=== PATIENT | male | born 1940 | race Caucasian/White ===

== ENCOUNTER 2019-08-12 11:59 | Inpatient (IN) | payer MEDICARE, OTHER ==
[~2019-08-12] VITALS: Ht 175 cm; Wt 109.9 kg
[2019-08-12] VITALS (8 sets, daily range): BP systolic 83–157; BP diastolic 69–118
[2019-08-12 12:16] LABS: HEMATOCRIT 48 % (40-54); HEMOGLOBIN 15.7 G/DL (13.3-17.7); MEAN CORPUSCULAR HEMOGLOBIN 32 PG (25-34); MEAN CORPUSCULAR HGB CONC 33 G/DL (32-36); MEAN CORPUSCULAR VOLUME 97 FL (80-99); WHITE BLOOD COUNT 11.2 10^3/uL (4.3-11.0)
[2019-08-12 12:17] LABS: BASOPHILS % (AUTO) 0 % (0-10); EOSINOPHILS # (AUTO) 0.3 10^3/uL (0.0-0.3); EOSINOPHILS % (AUTO) 3 % (0-10); LYMPHOCYTES # (AUTO) 2.8 X 10^3 (1.0-4.0); LYMPHOCYTES % (AUTO) 25 % (12-44); MEAN PLATELET VOLUME 9.4 FL (7.4-10.4); MONOCYTES # (AUTO) 0.5 X 10^3 (0.0-1.0); MONOCYTES % (AUTO) 5 % (0-12); NEUTROPHILS # (AUTO) 7.5 X 10^3 (1.8-7.8); NEUTROPHILS % (AUTO) 67 % (42-75); PLATELET COUNT 179 10^3/uL (130-400)
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
--- NOTE | 2019-08-12 12:51 | NUR ---
O2 sats 88% on room air. Patient placed on 2 liters nasal cannula with sats rising to 92%.
[2019-08-12 12:52] LABS: CHLORIDE 97 MMOL/L (98-107); SODIUM 135 MMOL/L (135-145)
[2019-08-12 12:53] LABS: ALANINE AMINOTRANSFERASE 25 U/L (0-55); ALBUMIN 3.9 GM/DL (3.2-4.5); ALKALINE PHOSPHATASE 67 U/L (40-136); BILIRUBIN,TOTAL 2.5 MG/DL (0.1-1.0); BUN/CREATININE RATIO 12; CALCIUM 9.1 MG/DL (8.5-10.1); CARBON DIOXIDE 22 MMOL/L (21-32); CREATININE SERUM 1.13 MG/DL (0.60-1.30); GFR ESTIMATED > 60; GLUCOSE 161 MG/DL (70-105); TOTAL PROTEIN 7.9 GM/DL (6.4-8.2)
[2019-08-12 13:03] LABS: CLARITY,URINE CLEAR; COLOR,URINE AMBER; GLUCOSE, URINE (UA) NEGATIVE (NEGATIVE); KETONES,URINE NEGATIVE (NEGATIVE); NITRITE,URINE NEGATIVE (NEGATIVE); PROTEIN,URINE NEGATIVE (NEGATIVE)
[2019-08-12 13:04] LABS: BACTERIA,URINE NEGATIVE /HPF; BILIRUBIN,URINE 1+ (NEGATIVE); LEUKOCYTE ESTERASE ,URINE NEGATIVE (NEGATIVE); SQUAMOUS EPITHELIAL CELL,UR 0-2 /HPF
[2019-08-12] MEDS ORDERED: IOHEXOL 350 MG/ML 150 ML (OMNIPAQUE 350) VIAL IV ONE (13:15)
[2019-08-12] MEDS ORDERED: HOLD METFORMIN - RECEIVED CONTRAST 20 ML VIAL IV SCH (13:15)
[2019-08-12] MEDS ORDERED: CATHETER FLUSH 10 ML SYR IV PRN (13:15)
[2019-08-12] MEDS ORDERED: NS 100 ML (IVPB) BAG IV ONE (13:15)
[2019-08-12] MEDS ORDERED: ENOXAPARIN 100 MG/1 ML (LOVENOX) SYR SC ONE (13:45)
--- NOTE | 2019-08-12 13:46 | Diagnostic Imaging Report ---
CHEST 1 VIEW AP/PA ONLY Indication: Dyspnea. Comparison: CTA chest performed concurrently. Findings: No focal airspace disease in the visualized lungs. Please note that the posterior lower lobes are poorly evaluated by portable radiography. No pleural effusion or pneumothorax. Normal cardiomediastinal silhouette. Impression: 1. No acute cardiopulmonary process by portable radiography. Please see CTA chest report for details of the bilateral pulmonary emboli. Dictated by: Dictated on workstation # [id number]
--- NOTE | 2019-08-12 13:50 | Diagnostic Imaging Report ---
PROCEDURE: CT angiography of the chest with contrast. TECHNIQUE: Multiple contiguous axial images were obtained through the chest after uneventful bolus administration of intravenous contrast. 3D reconstructed CTA MIP acquisitions were also performed. Auto Exposure Controls were utilized during the CT exam to meet ALARA standards for radiation dose reduction. INDICATION: Left leg pain and possible pulmonary embolism. Evaluation of pulmonary arterial system does show moderate clot burden within bilateral main pulmonary arteries. There is thrombus extending into lobar and segmental branches and there are bilateral upper lobes and bilateral lower lobes. No saddle embolus is identified. Thoracic aorta is normal caliber. There is no dissection. No pericardial or pleural fluid is seen. Parenchymal evaluation does show some minimal infiltrate or atelectasis in the posterior left lower lobe. Right lung is clear. No masses are identified. Upper abdomen does show hepatic steatosis. IMPRESSION: Extensive bilateral pulmonary emboli, as described. There is also mild infiltrate or atelectasis in the left lower lobe. Results were called to Dr. Moore of the emergency Department prior to this dictation. Dictated by: Dictated on workstation # [id number]
--- NOTE | 2019-08-12 13:51 | Diagnostic Imaging Report ---
PROCEDURE: US left lower extremity venous. TECHNIQUE: Multiple real-time grayscale images were obtained over the left lower extremity in various projections. Additional duplex Doppler and color Doppler images were also obtained. INDICATION: Left leg swelling. FINDINGS: Extensive left lower extremity DVT is seen. There is occlusive thrombus involving the left common femoral, superficial femoral and popliteal veins. Thrombus is seen within the posterior tibial vein. Peroneal veins are patent. No fluid collections are seen. IMPRESSION: Extensive left lower extremity DVT. Dictated by: Dictated on workstation # [id number]
[2019-08-12] MEDS ORDERED: HEParin DRIP 25000 UNIT/500ML 500 ML IV ONE (13:55)
[2019-08-12] MEDS ORDERED: HEParin 1000 UNIT/ML (10ML VIAL) FOR BOLUS IV ONE (14:00)
[2019-08-12 14:27] LABS: INR 1.1 (0.8-1.4); PROTHROMBIN TIME PATIENT 14.8 SEC (12.2-14.7)
[2019-08-12] MEDS ORDERED: HEParin 1000 UNIT/ML BOLUS (FULL THERAPY) IV PRN (17:15)
--- NOTE | 2019-08-12 18:51 | NUR ---
know dvt so scd's not placed due to contraindications
[2019-08-12] MEDS ORDERED: HEParin 1000 UNIT/ML (10ML VIAL) FOR BOLUS IV SCH (20:30)
--- NOTE | 2019-08-12 20:43 | History & Physical-Hospitalist ---
History of Present Illness HPI/Chief Complaint CC: Bilateral PE with DVT recurrent type HPI: This is a 79[address]WM patient of Dr Velázquez who later told the nurse he was matt nelson presented to the [facility] ICU after presenting to the [facility] ER with dyspnea and was found to have bilateral PE with left LE DVT. He was sent to [facility] last 09/13/18 for similar episode and was placed on Xarelto and he weaned off of it the past 3 months after w/u in [facility] revealed no cancer as source of the clots. He is currently on Heparin drip and Dr Parekh has been consulted and his O2 sat is 97% on room air. Source: patient Exam Limitations: no limitations Date Seen 08/12/19 Time Seen by a Provider: 16:30 Attending Physician Marcelle Sandhu Charles J MD Referring Physician Date of Admission Aug 12, 2019 at 14:18 Home Medications & Allergies Home Medications Reviewed patient Home Medication Reconciliation performed by pharmacy medication reconciliations rv service technician and/or nursing. Patients Allergies have been reviewed. Allergies Allergies Coded Allergies No Known Drug Allergies ([id number]/23/19) Past Lqhyomk-Agthrj-Zihxhz Hx Past Med/Social Hx: Reviewed Nursing Past Med/Soc Hx, Reviewed and Corrections made Patient Social History Marrital Status: single Employed/Student: retired Alcohol Use: Occasionally Uses Recreational Drug Use: No Smoking Status: Never a Smoker 2nd Hand Smoke Exposure: No Recent Foreign Travel: No Contact w/other who traveled: No Recent Hopitalizations: No Recent Infectious Disease Expo: No Seasonal Allergies Seasonal Allergies: No Past Medical History Surgeries: Appendectomy Respiratory: Pulmonary Embolism Cardiac: Deep Vein Thrombosis Review of Systems Constitutional: see HPI, weakness Respiratory: dyspnea on exertion Musculoskeletal: joint swelling Physical Exam Physical Exam Vital Signs Vital Signs - First Documented 08/12/19 08/12/19 12:05 16:45 Temp 36.2 Pulse 107 Resp 22 B/P (MAP) 139/63 (88) Pulse Ox 96 O2 Delivery Room Air O2 Flow Rate 3.00 Capillary Refill : Less Than 3 Seconds Height, Weight, BMI Height: '" Weight: lbs. oz. kg; 35.26 BMI Method: General Appearance: No Apparent Distress, Chronically ill Respiratory: Lungs Clear Cardiovascular: Regular Rate, Rhythm Extremity: Pedal Edema Neurologic/Psychiatric: Alert, Oriented x3, No Motor/Sensory Deficits, Normal Mood/Affect Results Results/Procedures Labs Laboratory Tests 08/12/19 12:10 Patient resulted labs reviewed. Assessment/Plan Admission Diagnosis Assessment: Bilateral PE recurrent type with DVT Plan: Heparin drip Dr Parekh consultation Admission Status: Inpatient Order (span 2 midnights) Reason for Inpatient Admission: Recurrent PE Diagnosis/Problems Diagnosis/Problems (1) Left leg DVT Status: Acute (2) Bilateral pulmonary embolism Status: Acute Clinical Quality Measures DVT/VTE Risk/Contraindication: Risk Factor Score Per Nursin RFS Level Per Nursing on Admit: 3=High MARCELLE SANDHU DO Aug 12, 2019 20:43
[2019-08-12] MEDS: HEParin DRIP 25000 UNIT/500ML (FULL THERAPY) IV SCH (21:07)
--- NOTE | 2019-08-12 21:17 | Consultation-Cardiology ---
HPI-Cardiology Cardiology Consultation Date of Consultation 08/12/19 Date of Admission Time Seen by Provider: 21:15 Indication: Pulmonary embolism HPI 79 years old gentleman with history of DVT PE in August 2018, had extensive workup, last treated with Xarelto, seen and had workup in [facility], was weaned off the Xarelto after no source of hypercoagulable state w as noted, he was doing well until recently started to have increased swelling in his left leg, went to the emergency room and noted to have DVT and PE. Denied any shortness of breath, no chest pain, no palpitation, he is maintained on heparin drip. Doesn't take any other medication Home Medications & Allergies Allergies: Coded Allergies: No Known Drug Allergies (Unverified , 08/12/19) Home Medication List Reviewed: Yes OHS-Zebkau-Muimcu Hx Patient Social History Marital Status: single Employed/Student: retired Alcohol Use: Occasionally Uses Recreational Drug Use: No Smoking Status: Never a Smoker 2nd Hand Smoke Exposure: No Recent Foreign Travel: No Recent Infectious Disease Expo: No Recent Hopitalizations: No Past Medical History DVT and PE Family Medical History Family Medical Hx Noncontributory Review of Systems-General Review of Systems Constitutional: see HPI, weakness EENTM: no symptoms reported Respiratory: see HPI; No cough; dyspnea on exertion; No hemoptysis, No orthopnea, No phlegm, No short of breath, No stridor, No wheezing, No other Cardiovascular: see HPI; No chest pain, No edema, No Hx of Intervention, No palpitations, No syncope, No vascular heart diseas, No other Gastrointestinal: no symptoms reported, see HPI Genitourinary: no symptoms reported Musculoskeletal: see HPI, joint pain, joint swelling Skin: see HPI, other (swelling on the left leg and pain) Psychiatric/Neurological: No Symptoms Reported, See HPI All Other Systems Reviewed Negative Unless Noted: Yes Reviewed Test Results Reviewed Test Results Lab Laboratory Tests Test 08/12/19 12:10 08/12/19 12:35 08/12/19 19:05 Range/Units White Blood Count 11.2 H 4.3-11.0 10^3/uL Red Blood Count 4.97 4.35-5.85 10^6/uL Hemoglobin 15.7 13.3-17.7 G/DL Hematocrit 48 40-54 % Mean Corpuscular Volume 97 80-99 FL Mean Corpuscular Hemoglobin 32 25-34 PG Mean Corpuscular Hemoglobin Concent 33 32-36 G/DL Red Cell Distribution Width 13.0 10.0-14.5 % Platelet Count 179 130-400 10^3/uL Mean Platelet Volume 9.4 7.4-10.4 FL Neutrophils (%) (Auto) 67 42-75 % Lymphocytes (%) (Auto) 25 12-44 % Monocytes (%) (Auto) 5 0-12 % Eosinophils (%) (Auto) 3 0-10 % Basophils (%) (Auto) 0 0-10 % Neutrophils # (Auto) 7.5 1.8-7.8 X 10^3 Lymphocytes # (Auto) 2.8 1.0-4.0 X 10^3 Monocytes # (Auto) 0.5 0.0-1.0 X 10^3 Eosinophils # (Auto) 0.3 0.0-0.3 10^3/uL Basophils # (Auto) 0.0 0.0-0.1 10^3/uL Prothrombin Time 14.8 H 12.2-14.7 SEC INR Comment 1.1 0.8-1.4 Activated Partial Thromboplast Time 27 59 H 24-35 SEC Sodium Level 135 135-145 MMOL/L Potassium Level 4.0 3.6-5.0 MMOL/L Chloride Level 97 L 98-107 MMOL/L Carbon Dioxide Level 22 21-32 MMOL/L Anion Gap 16 H 5-14 MMOL/L Blood Urea Nitrogen 14 7-18 MG/DL Creatinine 1.13 0.60-1.30 MG/DL Estimat Glomerular Filtration Rate > 60 BUN/Creatinine Ratio 12 Glucose Level 161 H 70-105 MG/DL Calcium Level 9.1 8.5-10.1 MG/DL Corrected Calcium 9.2 8.5-10.1 MG/DL Total Bilirubin 2.5 H 0.1-1.0 MG/DL Aspartate Amino Transf (AST/SGOT) 24 5-34 U/L Alanine Aminotransferase (ALT/SGPT) 25 0-55 U/L Alkaline Phosphatase 67 40-136 U/L Troponin I < 0.30 <0.30 NG/ML Pro-B-Type Natriuretic Peptide 602.5 H <75.0 PG/ML Total Protein 7.9 6.4-8.2 GM/DL Albumin 3.9 3.2-4.5 GM/DL Urine Color CARMELINA H Urine Clarity CLEAR Urine pH 6. 5-9 Urine Specific [place] 1.020 1.016-1.022 Urine Protein NEGATIVE NEGATIVE Urine Glucose (UA) NEGATIVE NEGATIVE Urine Ketones NEGATIVE NEGATIVE Urine Nitrite NEGATIVE NEGATIVE Urine Bilirubin 1+ H NEGATIVE Urine Urobilinogen >=8.0 NORMAL MG/DL Urine Leukocyte Esterase NEGATIVE NEGATIVE Urine RBC (Auto) 1+ H NEGATIVE Urine RBC 2-5 H /HPF Urine WBC NONE /HPF Urine Squamous Epithelial Cells 0-2 /HPF Urine Crystals NONE /LPF Urine Bacteria NEGATIVE /HPF Urine Casts NONE /LPF Urine Mucus SMALL H /LPF Urine Culture Indicated NO Physical Exam Physical Exam Vital Signs Vital Signs - First Documented 08/12/19 08/12/19 12:05 16:45 Temp 36.2 Pulse 107 Resp 22 B/P (MAP) 139/63 (88) Pulse Ox 96 O2 Delivery Room Air O2 Flow Rate 3.00 Capillary Refill : Less Than 3 Seconds Height, Weight, BMI Height: '" Weight: lbs. oz. kg; 35.26 BMI Method: General Appearance: No Apparent Distress, Chronically ill Eyes: Bilateral Eye Normal Inspection, Bilateral Eye PERRL, Bilateral Eye EOMI HEENT: PERRL/EOMI, Pharynx Normal Neck: Full Range of Motion, Normal Inspection, Non Tender, Supple Respiratory: Lungs Clear Cardiovascular: Regular Rate, Rhythm, No Gallop, No JVD, No Murmur, Normal Peripheral Pulses Gastrointestinal: Normal Bowel Sounds, No Pulsatile Mass, Non Tender, Soft Back: Normal Inspection, No CVA Tenderness, No Vertebral Tenderness Extremity: Pedal Edema Neurologic/Psychiatric: Alert, Oriented x3, No Motor/Sensory Deficits, Normal Mood/Affect Skin: Normal Color, Warm/Dry Lymphatic: No Adenopathy A/P-Cardiology Admission Diagnosis DVT PE Leg pain Assessment/Plan DVT/PE, multiple pulmonary embolism, second episode, unprovoked, had similar episode in August 2018. Was on Xarelto until about 3 months ago, restart Xarelto at 50 mg twice a day Swelling and pain in the left leg secondary to ovarian embolism No chest pain was reported Morbid obesity Clinical Quality Measures DVT/VTE Risk/Contraindication: Risk Factor Score Per Nursin RFS Level Per Nursing on Admit: 3=High MEGAN GARRETT MD Aug 12, 2019 9:17 pm
[2019-08-13] VITALS (12 sets, daily range): BP systolic 110–130; BP diastolic 65–92
[2019-08-13 03:56] LABS: BASOPHILS % (AUTO) 0 % (0-10); EOSINOPHILS # (AUTO) 0.5 10^3/uL (0.0-0.3); EOSINOPHILS % (AUTO) 5 % (0-10); HEMATOCRIT 44 % (40-54); HEMOGLOBIN 14.4 G/DL (13.3-17.7); LYMPHOCYTES % (AUTO) 21 % (12-44); MEAN CORPUSCULAR HEMOGLOBIN 31 PG (25-34); MEAN CORPUSCULAR HGB CONC 33 G/DL (32-36); MEAN CORPUSCULAR VOLUME 95 FL (80-99); MEAN PLATELET VOLUME 10.4 FL (7.4-10.4); MONOCYTES # (AUTO) 1.2 X 10^3 (0.0-1.0); MONOCYTES % (AUTO) 13 % (0-12); NEUTROPHILS # (AUTO) 5.8 X 10^3 (1.8-7.8); NEUTROPHILS % (AUTO) 61 % (42-75); PLATELET COUNT 180 10^3/uL (130-400); RED CELL DISTRIBUTION WIDTH 13.5 % (10.0-14.5); WHITE BLOOD COUNT 9.5 10^3/uL (4.3-11.0)
[2019-08-13 04:22] LABS: BUN/CREATININE RATIO 11; CARBON DIOXIDE 21 MMOL/L (21-32); CHLORIDE 103 MMOL/L (98-107); GFR ESTIMATED > 60; GLUCOSE 128 MG/DL (70-105); PHOSPHORUS 3.7 MG/DL (2.3-4.7); SODIUM 137 MMOL/L (135-145)
[2019-08-13] MEDS ORDERED: KCL 20 MEQ TAB (K-DUR) PO SCH (06:00)
[2019-08-13] MEDS ORDERED: MAGNESIUM 1 GM/100 ML IVPB 100 ML IV SCH (06:00)
[2019-08-13] MEDS ORDERED: POTASSIUM CL 10MEQ/50ML IVPB 50 ML IV SCH (06:00)
--- NOTE | 2019-08-13 06:19 | Diagnostic Imaging Report ---
INDICATION: Shortness of breath. Portable chest 5:04 AM FINDINGS: Heart size and pulmonary vascularity are normal. Lungs are clear. There are no effusions or pneumothoraces. IMPRESSION: Negative chest. Dictated by: Dictated on workstation # [id number]
[2019-08-13] MEDS: HEParin DRIP 25000 UNIT/500ML (FULL THERAPY) IV SCH (07:45)
--- NOTE | 2019-08-13 07:59 | Cardiology Progress Note ---
Subjective Date Seen by Provider: Aug 13, 2019 Time Seen by Provider: 07:58 Subjective/Events-last exam Patient is laying down in bed, still having some pain in his left leg, some cough Review of Systems General: No Chills, No Night Sweats, No Fatigue, No Malaise, No Appetite, No Other HEENT: No Head Aches, No Visual Changes, No Eye Pain, No Ear Pain, No Dysphasia, No Sinus Congestion, No Post Nasal Drip, No Sore Throat, No Other Pulmonary: Dyspnea, Cough; No Pleuritic Chest Pain, No Other Cardiovascular: No: Chest Pain, Palpitations, Orthopnea, Paroxysmal Noc. Dyspnea, Edema, Lt Headedness, Other Objective-Cardiology Exam Last Set of Vital Signs Vital Signs 08/13/19 08/13/19 06:00 07:00 Pulse 89 Resp 10 B/P (MAP) 130/79 (96) Pulse Ox 94 O2 Delivery Nasal Cannula O2 Flow Rate 3.00 Capillary Refill : Less Than 3 Seconds I&O Intake and Output 08/13/19 00:00 Intake Total 270 ml Output Total 525 ml Balance -255 ml Intake Oral 250 ml IV Total 20 ml Output Urine Total 525 ml Daily Weight Change No General: Alert, Oriented X3, Cooperative HEENT: Atraumatic, PERRLA Neck: Supple, No JVD, No Thyromegaly Lungs: Clear to Auscultation, Normal Air Movement Heart: Regular Rate, Normal S1, Normal S2, No Murmurs Abdomen: Normal Bowel Sounds, Soft, No Tenderness, No Hepatosplenomegaly, No Masses Extremities: No Clubbing, No Cyanosis, No Edema, Normal Pulses, No Tenderness/Swelling Skin: No Rashes, No Breakdown, No Significant Lesion Neuro: Normal Gait, Normal Speech, Strength at 5/5 X4 Ext, Normal Tone, Sensation Intact Psych/Mental Status: Mental Status NL, Mood NL Results Lab Laboratory Tests 08/12/19 12:10 08/13/19 03:00 A/P-Cardiology Admission Diagnosis DVT PE Leg pain Assessment/Plan DVT/PE, multiple pulmonary embolism, second episode, unprovoked, had similar episode in August 2018, start back on Xarelto 15 mg twice daily for 21 days then 20 mg daily Swelling and pain in the left leg secondary to DVT, continue on Xarelto No chest pain was reported Morbid obesity Okay for discharge and follow-up as an outpatient Clinical Quality Measures DVT/VTE Risk/Contraindication: Risk Factor Score Per Nursin RFS Level Per Nursing on Admit: 3=High MEGAN GARRETT MD Aug 13, 2019 07:59
[2019-08-13] MEDS ORDERED: RIVAROXABAN 15 MG TABLET (XARELTO) PO SCH ×2 (08:30→19:00)
[2019-08-13] MEDS ORDERED: RIVA15TA2 PO (09:34)
[2019-08-13] MEDS ORDERED: RIVA20TA2 PO (09:34)
--- NOTE | 2019-08-13 11:14 | Discharge Summary ---
[facility] 08/13/19 1114: Diagnosis/Chief Complaint Date of Admission Aug 12, 2019 at 14:18 Date of Discharge Discharge Date: Aug 13, 2019 Admission Diagnosis Assessment: Bilateral PE recurrent type with DVT Plan: Heparin drip Dr Parekh consultation Primary Care Miguel Angel Velázquez MD Discharge Diagnosis (1) Left leg DVT Status: Acute (2) Bilateral pulmonary embolism Status: Acute Discharge Summary Discharge Physical Exam Allergies: Coded Allergies: No Known Drug Allergies (Unverified , 08/12/19) Vitals & I&Os Vital Signs Date Time Temp Pulse Resp B/P (MAP) Pulse Ox O2 Delivery O2 Flow Rate FiO2 08/13/19 10:38 Room Air 08/13/19 10:06 1.00 08/13/19 09:00 89 125/83 (97) 94 08/13/19 08:00 20 08/13/19 04:00 36.8 General Appearance: No Apparent Distress, WD/WN HEENT: PERRL/EOMI, Pharynx Normal Respiratory: Chest Non Tender, Lungs Clear, Normal Breath Sounds, No Accessory Muscle Use, No Respiratory Distress Cardiovascular: Regular Rate, Rhythm, No Edema, No Gallop, No Murmur, Normal Peripheral Pulses Extremity: Normal Range of Motion, Non Tender, No Calf Tenderness, Pedal Edema Skin: Normal Color, Warm/Dry Neurologic/Psychiatric: Alert, Oriented x3, No Motor/Sensory Deficits, Normal Mood/Affect Hospital Course CC: Bilateral PE, LLE DVT Pt came into the [place] ER after having ankle swelling, thigh pain, and redness in his calf with associated SOB mainly with exertion. He was evaluated with Chest CTA and Extremity Venous Doppler and found to have multiple large bilateral PE and multiple DVT in his left leg. He was transferred to the [facility] ICU for treatment of the DVT and PE. He was started on Heparin prior to transfer and continued on it along with IV fluids overnight. In the morning he was transitioned to oral Rivaroxaban in preparation for discharge. He does not complain of shortness of breath or the leg pains anymore. Labs (last 24 hrs) Laboratory Tests 08/12/19 12:10: White Blood Count 11.2H, Red Blood Count 4.97, Hemoglobin 15.7, Hematocrit 48, Mean Corpuscular Volume 97, Mean Corpuscular Hemoglobin 32, Mean Corpuscular Hemoglobin Concent 33, Red Cell Distribution Width 13.0, Platelet Count 179, Mean Platelet Volume 9.4, Neutrophils (%) (Auto) 67, Lymphocytes (%) (Auto) 25, Monocytes (%) (Auto) 5, Eosinophils (%) (Auto) 3, Basophils (%) (Auto) 0, Neutrophils # (Auto) 7.5, Lymphocytes # (Auto) 2.8, Monocytes # (Auto) 0.5, Eosinophils # (Auto) 0.3, Basophils # (Auto) 0.0, Prothrombin Time 14.8H, INR Comment 1.1, Activated Partial Thromboplast Time 27, Sodium Level 135, Potassium Level 4.0, Chloride Level 97L, Carbon Dioxide Level 22, Anion Gap 16H, Blood Urea Nitrogen 14, Creatinine 1.13, Estimat Glomerular Filtration Rate > 60, BUN/Creatinine Ratio 12, Glucose Level 161H, Calcium Level 9.1, Corrected Calcium 9.2, Total Bilirubin 2.5H, Aspartate Amino Transf (AST/SGOT) 24, Alanine Aminotransferase (ALT/SGPT) 25, Alkaline Phosphatase 67, Troponin I < 0.30, Pro-B-Type Natriuretic Peptide 602.5H, Total Protein 7.9, Albumin 3.9 08/12/19 12:35: Urine Color AMBERH, Urine Clarity CLEAR, Urine pH 6., Urine Specific [place] 1.020, Urine Protein NEGATIVE, Urine Glucose (UA) NEGATIVE, Urine Ketones NEGATIVE, Urine Nitrite NEGATIVE, Urine Bilirubin 1+H, Urine Urobilinogen >=8.0, Urine Leukocyte Esterase NEGATIVE, Urine RBC (Auto) 1+H, Urine RBC 2-5H, Urine WBC NONE, Urine Squamous Epithelial Cells 0-2, Urine Crystals NONE, Urine Bacteria NEGATIVE, Urine Casts NONE, Urine Mucus SMALLH, Urine Culture Indicated NO 08/12/19 19:05: Activated Partial Thromboplast Time 59H 08/13/19 00:55: Activated Partial Thromboplast Time 198*H 08/13/19 03:00: White Blood Count 9.5, Red Blood Count 4.61, Hemoglobin 14.4, Hematocrit 44, Mean Corpuscular Volume 95, Mean Corpuscular Hemoglobin 31, Mean Corpuscular Hemoglobin Concent 33, Red Cell Distribution Width 13.5, Platelet Count 180, Mean Platelet Volume 10.4, Neutrophils (%) (Auto) 61, Lymphocytes (%) (Auto) 21, Monocytes (%) (Auto) 13H, Eosinophils (%) (Auto) 5, Basophils (%) (Auto) 0, Neutrophils # (Auto) 5.8, Lymphocytes # (Auto) 2.0, Monocytes # (Auto) 1.2H, Eosinophils # (Auto) 0.5H, Basophils # (Auto) 0.0, Sodium Level 137, Potassium Level 4.0, Chloride Level 103, Carbon Dioxide Level 21, Anion Gap 13, Blood Urea Nitrogen 11, Creatinine 1.00, Estimat Glomerular Filtration Rate > 60, BUN/Creatinine Ratio 11, Glucose Level 128H, Calcium Level 9.0, Phosphorus Level 3.7, Magnesium Level 2.0 08/13/19 09:33: Activated Partial Thromboplast Time 37H Patient resulted labs reviewed. Pending Labs Laboratory Tests 08/13/19 09:33: Activated Partial Thromboplast Time 37 Discharge Home Medications: Active Scripts Active Xarelto Tablet (Rivaroxaban) 20 Mg Tablet 20 Mg PO DAILY@1700 Xarelto Tablet (Rivaroxaban) 15 Mg Tablet 15 Mg PO BID@0700,1900 Instructions to patient/family Please see electronic discharge instructions given to patient. Clinical Quality Measures DVT/VTE Risk/Contraindication: Risk Factor Score Per Nursin RFS Level Per Nursing on Admit: 3=High MARCELLE SANDHU DO 08/13/192112: Diagnosis/Chief Complaint Discharge Diagnosis (1) Bilateral pulmonary embolism Status: Acute (2) Left leg DVT Status: Acute Discharge Summary Discharge Physical Exam Allergies: Coded Allergies: No Known Drug Allergies (Unverified , 08/12/19) General Appearance: No Apparent Distress, WD/WN Respiratory: Normal Breath Sounds Cardiovascular: Regular Rate, Rhythm Neurologic/Psychiatric: Alert, Oriented x3, No Motor/Sensory Deficits, Normal Mood/Affect Hospital Course Was the Problem List Reviewed?: Yes Hospital course: Pt had an uneventful hospital course, he was admitted for B/L pulmonary emboli and DVT due to noncompliance with Xarelto, so he was placed on a Xarelto 15 mg BID in addition to conversion of 20 mg daily after three weeks o f that regimen and will be discharged with close follow-up with Dr. Velázquez in [place]. He did not require oxygen supplementation. Discussion & Recommendations Discharge Planning: <30 minutes discharge planning Supervisory-Addendum Brief Verification & Attestation Participated in pt care: history, MDM, physical Personally performed: exam, history, MDM, supervision of care Care discussed with: Medical Student Procedures: n/a Results interpretation: Verified all documentation Verification and Attestation of Medical Student E/M Service A medical student performed and documented this service in my presence. I reviewed and verified all information documented by the medical student and made modifications to such information, when appropriate. I personally performed the physical exam and medical decision making. Marcelle Sandhu, Aug 13, 2019,21:13 [facility] Aug 13, 2019 11:14 MARCELLE SANDHU DO Aug 13, 2019 21:13
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
[2019-09-03] MEDS ORDERED: RIVAROXABAN 20 MG TABLET (XARELTO) PO SCH (17:00)
== END 2019-08-13 14:00 | disposition home or self-care (01) | DRG 176 ==
LOC: ER FS 12:01 → ICU 14:18 → OBSVTOIN 14:18
PROVIDERS: ADMIT Internal Medicine; ATTEND Internal Medicine
DX: I26.99 Other pulmonary embolism without acute cor pulmonale (principal); I82.412 Acute embolism and thrombosis of left femoral vein; I82.432 Acute embolism and thrombosis of left popliteal vein; I82.442 Acute embolism and thrombosis of left tibial vein; E66.01 Morbid (severe) obesity due to excess calories; Z91.19 Patient's noncompliance with other medical treatment and regimen; Z59.0 Homelessness; Z68.35 Body mass index [BMI] 35.0-35.9, adult; Z86.711 Personal history of pulmonary embolism; Z86.718 Personal history of other venous thrombosis and embolism
CPT/HCPCS: 36415; 71045; 71275; 80048; 80053; 81000; 83735; 83880; 84100; 84484; 85025; 85610; 85730; 87081; 93005; 93306; 96365

== ENCOUNTER 2020-08-30 19:09 | Emergency (ER) | payer MEDICARE ==
[~2020-08-30] VITALS: Ht 175.3 cm; Wt 104.3 kg
[~2020-08-30 19:09] MED LIST: RIVA15TA2 PO; RIVA20TA2 PO
--- NOTE | 2020-08-30 19:41 | ED General ---
General Chief Complaint: General Problems/Pain Stated Complaint: LEG PAIN;SHOULDER PAIN Source of Information: Patient Exam Limitations: No Limitations History of Present Illness Date Seen by Provider: Aug 30, 2020 Time Seen by Provider: 19:37 Initial Comments For about 2 months patient has had some vague nonspecific symptoms including rhinorrhea, sore throat, malaise, fevers. He was tested for Covid and it was negative. He followed up and today was sent to the emergency room in [facility] due to low back and pelvic pain for about a month as well as bilateral leg pain and right shoulder pain. A CT scan was done showing multiple lytic lesions in the lumbar spine and pelvis with a differential include multiple myeloma or metastatic disease. He was then referred to the emergency room here but the reasons why are not exactly clear Timing/Duration: 1-2 Days Severity: Moderate Associated Systoms: Weakness Allergies and Home Medications Allergies Coded Allergies: No Known Drug Allergies (Unverified , 08/12/19) Home Medications Docusate Sodium 100 Mg Capsule, 100 MG PO DAILY Prescribed by: MARLENI BAKER on 08/30/202039 Hydrocodone/Acetaminophen 1 Each Tablet, 1 EACH PO Q4H PRN for PAIN-MODERATE (5- 7) Prescribed by: MARLENI BAKER on 08/30/202039 Rivaroxaban 15 Mg Tablet, 15 MG PO BID@0700,1900 Prescribed by: CLEMENTE SANDHU on 08/13/19933 Rivaroxaban 20 Mg Tablet, 20 MG PO DAILY@1700 Prescribed by: CLEMENTE SANDHU on 08/13/19933 Patient Home Medication List Home Medication List Reviewed: Yes Review of Systems Review of Systems Constitutional: see HPI; No chills, No fever; malaise, weakness EENTM: see HPI Respiratory: no symptoms reported; No cough, No short of breath Cardiovascular: no symptoms reported; No chest pain Musculoskeletal: see HPI, back pain Skin: no symptoms reported Psychiatric/Neurological: No Symptoms Reported Hematologic/Lymphatic: No Symptoms Reported Past Muyukvc-Adaytn-Iyudfy Hx Patient Social History 2nd Hand Smoke Exposure: No Recent Foreign Travel: No Contact w/Someone Who Travel: No Recent Hopitalizations: No Immunizations Up To Date Date of Influenza Vaccine: Jul 21, 2019 Seasonal Allergies Seasonal Allergies: No Past Medical History Surgeries: Yes (dental cyst removed) Appendectomy Respiratory: Yes Pulmonary Embolism Cardiac: No Deep Vein Thrombosis Neurological: No Genitourinary: No Gastrointestinal: No Musculoskeletal: No Endocrine: No HEENT: No Cancer: No Psychosocial: No Integumentary: No Physical Exam Vital Signs Vital Signs - First Documented 08/30/20 19:25 Temp 36.9 Pulse 99 Resp 18 B/P (MAP) 110/89 (96) Pulse Ox 97 O2 Delivery Room Air Capillary Refill : Height, Weight, BMI Height: '" Weight: lbs. oz. kg; 35.26 BMI Method: General Appearance: No Apparent Distress, WD/WN, Obese, Other (alert and oriented. ) Eyes: Bilateral Eye Normal Inspection, Bilateral Eye PERRL, Bilateral Eye EOMI HEENT: PERRL/EOMI, TMs Normal Neck: Full Range of Motion, Normal Inspection Respiratory: Normal Breath Sounds, No Accessory Muscle Use, No Respiratory Distress Cardiovascular: Regular Rate, Rhythm, Normal Peripheral Pulses Gastrointestinal: Normal Bowel Sounds, Non Tender, Soft; No Tenderness Extremity: Normal Capillary Refill, Normal Inspection Neurologic/Psychiatric: Alert, Oriented x3 Skin: Normal Color, Warm/Dry Progress/Results/Core Measures Suspected Sepsis SIRS Temperature: Pulse: Respiratory Rate: Laboratory Tests 08/30/20 19:53: White Blood Count 11.3H Blood Pressure / Mean: Laboratory Tests 08/30/20 19:53: Creatinine 0.83, Platelet Count 244, Total Bilirubin 1.4H Results/Orders Lab Results Laboratory Tests Test 08/30/20 19:53 08/30/20 20:45 Range/Units White Blood Count 11.3 H 4.3-11.0 10^3/uL Red Blood Count 5.30 4.30-5.52 10^6/uL Hemoglobin 16.2 13.3-17.7 g/dL Hematocrit 50 40-54 % Mean Corpuscular Volume 95 80-99 fL Mean Corpuscular Hemoglobin 31 25-34 pg Mean Corpuscular Hemoglobin Concent 32 32-36 g/dL Red Cell Distribution Width 12.6 10.0-14.5 % Platelet Count 244 130-400 10^3/uL Mean Platelet Volume 9.8 9.0-12.2 fL Immature Granulocyte % (Auto) 0 % Neutrophils (%) (Auto) 74 42-75 % Lymphocytes (%) (Auto) 17 12-44 % Monocytes (%) (Auto) 9 0-12 % Eosinophils (%) (Auto) 0 0-10 % Basophils (%) (Auto) 0 0-10 % Neutrophils # (Auto) 8.3 H 1.8-7.8 10^3/uL Lymphocytes # (Auto) 1.9 1.0-4.0 10^3/uL Monocytes # (Auto) 1.0 0.0-1.0 10^3/uL Eosinophils # (Auto) 0.1 0.0-0.3 10^3/uL Basophils # (Auto) 0.0 0.0-0.1 10^3/uL Immature Granulocyte # (Auto) 0.0 0.0-0.1 10^3/uL Sodium Level 134 L 135-145 MMOL/L Potassium Level 4.5 3.6-5.0 MMOL/L Chloride Level 98 98-107 MMOL/L Carbon Dioxide Level 22 21-32 MMOL/L Anion Gap 14 5-14 MMOL/L Blood Urea Nitrogen 17 7-18 MG/DL Creatinine 0.83 0.60-1.30 MG/DL Estimat Glomerular Filtration Rate > 60 BUN/Creatinine Ratio 20 Glucose Level 117 H 70-105 MG/DL Calcium Level 9.9 8.5-10.1 MG/DL Corrected Calcium 10.0 8.5-10.1 MG/DL Total Bilirubin 1.4 H 0.1-1.0 MG/DL Aspartate Amino Transf (AST/SGOT) 37 H 5-34 U/L Alanine Aminotransferase (ALT/SGPT) 40 0-55 U/L Alkaline Phosphatase 119 40-136 U/L Total Protein 7.8 6.4-8.2 GM/DL Albumin 3.9 3.2-4.5 GM/DL My Orders Orders - MARLENI BAKER ARTIFICIAL INSEMINATION TECHNICIAN Cbc With Automated Diff (08/30/20 19:36) Comprehensive Metabolic Panel (08/30/20 19:36) Ua Culture If Indicated (08/30/20 19:36) Hydrocodone/Apap 5/325 Tablet (Lortab 5 (08/30/20 19:45) Chest Pa/Lat (2 View) (08/30/20 19:46) Ct Chest/Abdomen W (08/30/20 20:30) Iohexol Injection (Omnipaque 350 Mg/Ml 1 (08/30/20 20:45) Received Contrast (Hold Metformin- Contr (08/30/20 20:45) Ns (Ivpb) (Sodium Chloride 0.9% Ivpb Bag (08/30/20 20:45) Medications Given in ED Current Medications Medications Dose Ordered Sig/Luli Route Start Time Stop Time Status Last Admin Dose Admin Acetaminophen/ Hydrocodone Bitart 1 tab ONCE ONCE PO 08/30/20 19:45 08/30/20 19:46 DC 08/30/20 19:48 1 TAB Iohexol 100 ml ONCE ONCE IV 08/30/20 20:45 08/30/20 20:46 DC 08/30/20 20:57 100 ML Sodium Chloride 100 ml ONCE ONCE IV 08/30/20 20:45 08/30/20 20:46 DC 08/30/20 20:57 80 ML Vital Signs/I&O 08/30/20 19:25 Temp 36.9 Pulse 99 Resp 18 B/P (MAP) 110/89 (96) Pulse Ox 97 O2 Delivery Room Air Capillary Refill : Diagnostic Imaging Diagonstic Imaging: CT Comments NAME: DOMINIC LINCOLN MED REC#: [id number] PT STATUS: REG ER : 1940 PHYSICIAN: MARLENI BAKER APRN ADMIT DATE: 08/30/20/ER Draft Date of Exam:08/30/20 CHEST PA/LAT (2 VIEW) INDICATION: Right scapular pain EXAMINATION: PA and lateral views of the chest. FINDINGS: The heart size and vascularity are normal. Lungs are clear. There is no effusion. There is no acute bony abnormality. IMPRESSION: 1. No acute abnormality is seen. 2. There is no change from 08/13/2019. Dictated on workstation # [id number] Dict: 08/30/202012 Trans: 08/30/20 2017 [facility] [id number] Interpreted by: KIRILL ROCHA MD Electronically signed by: NAME: DOMINIC LINCOLN MED REC#: [id number] PT STATUS: REG ER : 1940 PHYSICIAN: MARLENI BAKER APRN ADMIT DATE: 08/30/20/ER Draft Date of Exam:08/30/20 CT CHEST/ABDOMEN W PROCEDURE: CT chest and abdomen with contrast. TECHNIQUE: Multiple contiguous axial images were obtained through the chest and abdomen after the administration of intravenous contrast. Auto Exposure Controls were utilized during the CT exam to meet ALARA standards for radiation dose reduction. INDICATION:Abnormal lytic lesion seen in the lumbar spine. Right scapular pain. CT CHEST: The lungs are clear. There is no effusion or pneumothorax. There is no mediastinal, hilar or axillary lymphadenopathy. There is a 1 cm lytic lesion in the T7 vertebral body. There is an 8 mm lytic lesion in the T9 vertebral body. There is a 12 mm lytic lesion in the T12 vertebral body. CT ABDOMEN AND PELVIS: There is an 18 mm vague low density lesion in the posterior segment of the right lobe of the liver. The remainder of the liver is normal. The gallbladder and bile ducts are normal. The spleen, pancreas and right adrenal gland are normal. There is nodularity of the left adrenal gland with a lesion measuring 2 cm. The kidneys are normal. There is a hiatal hernia. No acute bowel abnormality is evident. There is no adenopathy. There is no ascites. There is a 16 mm lytic lesion in the posterior L5 vertebral body with another similar-sized lesion at L3. 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 CT of the abdomen and pelvis shows a possible lesion in the liver which may be secondary to metastatic disease. There is a left adrenal gland lesion which may be secondary to metastatic disease. 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 Dictated on workstation # [id number] Dict: 08/30/202113 Trans: 08/30/202124 [facility] [phone] Interpreted by: KIRILL ROCHA MD Electronically signed by: Departure Communication (Admissions) 2035-I spoke with Dr. Osborne from oncology. Recommends getting a CT scan of the chest abdomen pelvis to rule out primary that could have metastasized. If there is no evidence of a primary lesion then he would recommend a peripheral smear, serum protein electrophoresis, quantitative immuneglobulins, beta-2 microglobulin's and he will see in the clinic. 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 Will defer obtaining MM labs until evaluated by oncology. Impression Primary Impression: lytic bony lesions Disposition: HOME, SELF-CARE Condition: Stable Departure-Patient Inst. Decision time for Depature: 20:38 Referrals: JEF GREY CHARLES J MD (PCP) Primary Care Physician Patient Instructions: NO INSTRUCTIONS GIVEN Add. Discharge Instructions: Call Dr. Villa office tomorrow to make an appointment to be seen as soon as they can see you. Tell them I spoke with him tonight. Pain medication as dire cted. Be aware this can be constipating so you should also take a stool softener as directed. Return to ER for any worsening symptoms, intolerable pain or other concerns. All discharge instructions reviewed with patient and/or family. Voiced understanding. Scripts Docusate Sodium (Colace) 100 Mg Capsule 100 MG PO DAILY, #14 CAP Prov: MARLENI BAKER APRN 08/30/20 Hydrocodone/Acetaminophen (Hydrocodone-Acetamin 5-325 mg) 1 Each Tablet 1 EACH PO Q4H PRN for PAIN-MODERATE (5-7), #20 TAB Prov: MARLENI BAKER APRN 08/30/20 Copy Copies To 1: JEF GREY PETER J APRN Aug 30, 2020 19:41
[2020-08-30] MEDS ORDERED: HYDROcodone/APAP 5 MG/325 MG (LORTAB) TAB PO ONE (19:45)
[2020-08-30 20:12] LABS: BASOPHILS % (AUTO) 0 % (0-10); EOSINOPHILS # (AUTO) 0.1 10^3/uL (0.0-0.3); EOSINOPHILS % (AUTO) 0 % (0-10); HEMATOCRIT 50 % (40-54); HEMOGLOBIN 16.2 g/dL (13.3-17.7); LYMPHOCYTES # (AUTO) 1.9 10^3/uL (1.0-4.0); LYMPHOCYTES % (AUTO) 17 % (12-44); MEAN CORPUSCULAR HEMOGLOBIN 31 pg (25-34); MEAN CORPUSCULAR HGB CONC 32 g/dL (32-36); MEAN CORPUSCULAR VOLUME 95 fL (80-99); MEAN PLATELET VOLUME 9.8 fL (9.0-12.2); MONOCYTES % (AUTO) 9 % (0-12); NEUTROPHILS # (AUTO) 8.3 10^3/uL (1.8-7.8); NEUTROPHILS % (AUTO) 74 % (42-75); PLATELET COUNT 244 10^3/uL (130-400); WHITE BLOOD COUNT 11.3 10^3/uL (4.3-11.0)
--- NOTE | 2020-08-30 20:17 | Diagnostic Imaging Report ---
INDICATION: Right scapular pain EXAMINATION: PA and lateral views of the chest. FINDINGS: The heart size and vascularity are normal. Lungs are clear. There is no effusion. There is no acute bony abnormality. IMPRESSION: 1. No acute abnormality is seen. 2. There is no change from 08/13/2019. Dictated by: Dictated on workstation # [id number]
[2020-08-30 20:26] LABS: ALANINE AMINOTRANSFERASE 40 U/L (0-55); ALBUMIN 3.9 GM/DL (3.2-4.5); ALKALINE PHOSPHATASE 119 U/L (40-136); BILIRUBIN,TOTAL 1.4 MG/DL (0.1-1.0); BUN/CREATININE RATIO 20; CALCIUM 9.9 MG/DL (8.5-10.1); CARBON DIOXIDE 22 MMOL/L (21-32); CHLORIDE 98 MMOL/L (98-107); CREATININE SERUM 0.83 MG/DL (0.60-1.30); GFR ESTIMATED > 60; GLUCOSE 117 MG/DL (70-105); POTASSIUM 4.5 MMOL/L (3.6-5.0); SODIUM 134 MMOL/L (135-145); TOTAL PROTEIN 7.8 GM/DL (6.4-8.2)
[2020-08-30] MEDS ORDERED: ACHD5005 PO (20:40)
[2020-08-30] MEDS ORDERED: DOCU-143 PO (20:40)
[2020-08-30] MEDS ORDERED: NS 100 ML (IVPB) BAG IV ONE (20:45)
[2020-08-30] MEDS ORDERED: HOLD METFORMIN - RECEIVED CONTRAST 20 ML VIAL IV SCH (20:45)
[2020-08-30] MEDS ORDERED: IOHEXOL 350 MG/ML 100 ML (OMNIPAQUE 350) VIAL IV ONE (20:45)
[2020-08-30 20:57] LABS: BILIRUBIN,URINE NEGATIVE (NEGATIVE); CLARITY,URINE CLEAR; COLOR,URINE ORANGE; GLUCOSE, URINE (UA) NEGATIVE (NEGATIVE); KETONES,URINE NEGATIVE (NEGATIVE); LEUKOCYTE ESTERASE ,URINE NEGATIVE (NEGATIVE); NITRITE,URINE NEGATIVE (NEGATIVE); PH,URINE 5.5 (5-9); PROTEIN,URINE NEGATIVE (NEGATIVE)
--- NOTE | 2020-08-30 21:25 | Diagnostic Imaging Report ---
PROCEDURE: CT chest and abdomen with contrast. TECHNIQUE: Multiple contiguous axial images were obtained through the chest and abdomen after the administration of intravenous contrast. Auto Exposure Controls were utilized during the CT exam to meet ALARA standards for radiation dose reduction. INDICATION:Abnormal lytic lesion seen in the lumbar spine. Right scapular pain. CT CHEST: The lungs are clear. There is no effusion or pneumothorax. There is no mediastinal, hilar or axillary lymphadenopathy. There is a 1 cm lytic lesion in the T7 vertebral body. There is an 8 mm lytic lesion in the T9 vertebral body. There is a 12 mm lytic lesion in the T12 vertebral body. CT ABDOMEN AND PELVIS: There is an 18 mm vague low density lesion in the posterior segment of the right lobe of the liver. The remainder of the liver is normal. The gallbladder and bile ducts are normal. The spleen, pancreas and right adrenal gland are normal. There is nodularity of the left adrenal gland with a lesion measuring 2 cm. The kidneys are normal. There is a hiatal hernia. No acute bowel abnormality is evident. There is no adenopathy. There is no ascites. There is a 16 mm lytic lesion in the posterior L5 vertebral body with another similar-sized lesion at L3. 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 CT of the abdomen and pelvis shows a possible lesion in the liver which may be secondary to metastatic disease. There is a left adrenal gland lesion which may be secondary to metastatic disease. 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 Dictated by: Dictated on workstation # [id number]
[2020-08-30 21:31] LABS: AMORPHOUS SEDIMENT,UR MOD AMOR URATES /LPF; BACTERIA,URINE TRACE /HPF; WBC,URINE 0-2 /HPF
[2020-08-30] MEDS ORDERED: RX-HYDROCODONE/APAP 5/325 MG #4 TAB PK PO PRN (21:45)
[2020-08-30 21:59] VITALS: BP 130/87
== END 2020-08-30 21:59 | disposition home or self-care (01) ==
LOC: EDUNIT# 19:09 → ER 19:10
DX: M89.8X0 Other specified disorders of bone, multiple sites (principal); R53.1 Weakness; Z20.828 Contact with and (suspected) exposure to other viral communicable diseases; Z86.711 Personal history of pulmonary embolism; Z86.718 Personal history of other venous thrombosis and embolism; Z79.01 Long term (current) use of anticoagulants
CPT/HCPCS: 71046; 71260; 72131; 72192; 74160; 80053; 81000; 85025; 99284; G0103; 36415; 84153

== ENCOUNTER → 2020-09-05 | Day surgery (SDC) | payer MEDICARE ==
[~2020-09-05] MED LIST changes: +ACHD5005 PO; +DOCU-143 PO; +LIDOCAINE 1% INJ 20 ML 20 ML VIAL INJ ONE
--- NOTE | 2020-09-05 13:45 | Diagnostic Imaging Report ---
INDICATION: Subcutaneous nodules. Patient presents for ultrasound-guided biopsy. FINDINGS: Patient was brought to the procedure room, placed on table in the prone position. Ultrasound imaging over the low back was performed to evaluate appropriate entry site. There is a hypoechoic nodule in the left paraspinous location of the posterior abdomen. The skin was prepped and draped in the usual sterile fashion. Small amount of 1% lidocaine was utilized for local anesthesia. A total of four core biopsies were made of the hypoechoic solid mass in the left paraspinous low back region. Hemostasis was obtained using manual compression. Patient tolerated the procedure well and left the department in stable condition. IMPRESSION: Successful ultrasound-guided core biopsy of a soft tissue mass in the subcutaneous tissues of the left low back. Pathology results are currently pending. Dictated by: Dictated on workstation # [id number]
== END ==
LOC: RAD 11:08
PROVIDERS: ATTEND Internal Medicine Hematology & Oncology
DX: C44.509 Unspecified malignant neoplasm of skin of other part of trunk (principal)

== ENCOUNTER 2020-09-13 09:41 | Emergency (ER) | payer MEDICARE ==
[~2020-09-13] VITALS: Ht 175 cm; Wt 115.0 kg
[~2020-09-13 09:41] MED LIST changes: -LIDOCAINE 1% INJ 20 ML 20 ML VIAL INJ ONE
[2020-09-13] MEDS ORDERED: PANTOPRAZOLE 40 MG (PROTONIX) VIAL IV ONE (10:00)
[2020-09-13] MEDS ORDERED: PANTOPRAZOLE INJECTION 200 MG in NS (IVPB) 100 ML IV SCH (10:00)
[2020-09-13] MEDS ORDERED: NS IV 1000 ML 1,000 ML IV SCH ×3 (10:15→15:00)
[2020-09-13 10:19] LABS: BASOPHILS % (AUTO) 0 % (0-10); EOSINOPHILS % (AUTO) 0 % (0-10); HEMATOCRIT 49 % (40-54); LYMPHOCYTES % (AUTO) 7 % (12-44); MEAN CORPUSCULAR HEMOGLOBIN 31 PG (25-34); MEAN CORPUSCULAR HGB CONC 33 G/DL (32-36); MEAN CORPUSCULAR VOLUME 94 FL (80-99); MEAN PLATELET VOLUME 10.1 FL (7.4-10.4); MONOCYTES % (AUTO) 7 % (0-12); NEUTROPHILS % (AUTO) 85 % (42-75); PLATELET COUNT 223 10^3/uL (130-400); WHITE BLOOD COUNT 17.5 10^3/uL (4.3-11.0)
[2020-09-13 10:20] LABS: LYMPHOCYTES # (AUTO) 1.3 X 10^3 (1.0-4.0); MONOCYTES # (AUTO) 1.3 X 10^3 (0.0-1.0); NEUTROPHILS # (AUTO) 14.8 X 10^3 (1.8-7.8)
--- NOTE | 2020-09-13 10:21 | Diagnostic Imaging Report ---
Indication: Chest pain Portable chest 10:08 AM Heart size and pulmonary vascularity are normal. There is a patchy infiltrate at the left lateral lung base. Right lung is clear. There are no effusions. IMPRESSION: Suspected small patchy infiltrate left lateral lung base. Dictated by: Dictated on workstation # [id number]
[2020-09-13 10:31] LABS: INR 1.3 (0.8-1.4); PROTHROMBIN TIME PATIENT 16.8 SEC (12.2-14.7)
[2020-09-13 10:40] LABS: BUN/CREATININE RATIO 37; CARBON DIOXIDE 24 MMOL/L (21-32); CHLORIDE 91 MMOL/L (98-107); CREATININE SERUM 1.64 MG/DL (0.60-1.30); GFR ESTIMATED 41; POTASSIUM 4.3 MMOL/L (3.6-5.0); SODIUM 137 MMOL/L (135-145)
[2020-09-13 10:41] LABS: ALANINE AMINOTRANSFERASE 16 U/L (0-55); ALBUMIN 3.1 GM/DL (3.2-4.5); ALKALINE PHOSPHATASE 140 U/L (40-136); BILIRUBIN,TOTAL 1.1 MG/DL (0.1-1.0); CALCIUM 11.6 MG/DL (8.5-10.1); GLUCOSE 146 MG/DL (70-105); LIPASE 47 U/L (8-78); MAGNESIUM 1.9 MG/DL (1.6-2.4); TOTAL PROTEIN 6.2 GM/DL (6.4-8.2)
[2020-09-13 10:52] LABS: BAND NEUTROPHILS 1 %; EOSINOPHILS % (MANUAL) 0 %; LYMPHOCYTES % (MANUAL) 8 %; MONOCYTES % (MANUAL) 5 %; NEUTROPHILS % (MANUAL) 86 %
[2020-09-13 10:53] LABS: BASOPHILS % (MANUAL) 0 %; RBC MORPH NORMAL
--- NOTE | 2020-09-13 10:59 | ED Abdominal Pain ---
General Chief Complaint: Abdominal/GI Problems Stated Complaint: VOMITING Nursing Triage Note: PT STARTED VOMITING LAST PM. TODAY HE STARTED HAVING A BLACK EMESIS. PT REPORTS NO BM X 5 DAYS. 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 Reports multiple episodes. No hematemesis, Also reports abdominal distention, constipation no bowel movements the past 5 days. Patient is currently on Xarelto for treatment of PE.. Denies chest pain shortness of breath. No fever chills or sweats. No other acute symptoms or complaints. Patient patient denies history of peptic ulcer disease. No history of cirrhosis or alcohol abuse Timing/Duration: 12 Hours Severity/Quality: Moderate Location: Suprapubic Activities at Onset: None Modifying Factors: Improves With Other Associated Symptoms: Nausea/Vomiting Allergies and Home Medications Allergies Coded Allergies: No Known Drug Allergies (Unverified , 08/12/19) Home Medications Docusate Sodium 100 Mg Capsule, 100 MG PO DAILY Prescribed by: MARLENI BAKER on 08/30/202039 Hydrocodone/Acetaminophen 1 Each Tablet, 1 EACH PO Q4H PRN for PAIN-MODERATE (5- 7) Prescribed by: MARLENI BAKER on 08/30/202039 Rivaroxaban 15 Mg Tablet, 15 MG PO BID@0700,1900 Prescribed by: CLEMENTE SANDHU on 08/13/19933 Rivaroxaban 20 Mg Tablet, 20 MG PO DAILY@1700 Prescribed by: CLEMENTE SANHDU on 08/13/19933 Patient Home Medication List Home Medication List Reviewed: Yes Review of Systems Review of Systems Constitutional: see HPI EENTM: See HPI Respiratory: See HPI Cardiovascular: See HPI Gastrointestinal: See HPI Genitourinary: See HPI Musculoskeletal: see HPI Psychiatric/Neurological: See HPI Endocrine: See HPI Hematologic/Lymphatic: See HPI All Other Systems Reviewed Negative Unless Noted: Yes Past Fpeyunl-Tnfimm-Qzbyct Hx Past Med/Social Hx: Reviewed Nursing Past Med/Soc Hx Patient Social History Alcohol Use: Denies Use Recreational Drug Use: No 2nd Hand Smoke Exposure: No Recent Foreign Travel: No Contact w/Someone Who Travel: No Recent Infectious Disease Expo: No Recent Hopitalizations: No Physical Abuse: No Sexual Abuse: No Mistreated: No Fear: No Immunizations Up To Date Date of Influenza Vaccine: Jul 21, 2019 Seasonal Allergies Seasonal Allergies: No Past Medical History Surgeries: Yes (dental cyst removed) Appendectomy Respiratory: Yes Pulmonary Embolism Cardiac: No Deep Vein Thrombosis Neurological: No Genitourinary: No Gastrointestinal: No Musculoskeletal: No Endocrine: No HEENT: No Cancer: No Psychosocial: No Integumentary: No Physical Exam Vital Signs Vital Signs - First Documented 09/13/20 10:11 Temp 35.2 Pulse 153 Resp 18 B/P (MAP) 122/74 (90) Pulse Ox 94 O2 Delivery Room Air Capillary Refill : Less Than 3 Seconds Height/Weight/BMI Height: '" Weight: lbs. oz. kg; 37.00 BMI Method: General Appearance: WD/WN, no apparent distress HEENT: PERRL/EOMI, normal ENT inspection, pharynx normal, other (Mireles stained with coffee ground emesis) Neck: non-tender, supple Respiratory: lungs clear, normal breath sounds Cardiovascular: regular rate, rhythm, no gallop Gastrointestinal: soft, abnormal bowel sounds, distended Extremities: normal range of motion Neurologic/Psychiatric: no motor/sensory deficits, oriented x 3 Focused Exam Sepsis Stage: Sepsis Lactate Level 09/13/20 13:53: Lactic Acid Level 7.87*H Time of Focused Exam: 00:30 Respiratory: Lungs Clear Cardiovascular: Tachycardia Capillary Refill: Less Than 3 Seconds Lactic Acid Level Laboratory Tests Test 09/13/20 13:53 Lactic Acid Level 7.87 MMOL/L (0.50-2.00) *H Within 3hrs of presentation: Admin fluids, Admin ABX, Blood cultures prior to ABX's, Focus exam Progress/Results/Core Measures Results/Orders Lab Results Laboratory Tests Test 09/13/20 09:56 09/13/20 13:53 Range/Units White Blood Count 17.5 H 4.3-11.0 10^3/uL Red Blood Count 5.16 4.35-5.85 10^6/uL Hemoglobin 16.0 13.3-17.7 G/DL Hematocrit 49 40-54 % Mean Corpuscular Volume 94 80-99 FL Mean Corpuscular Hemoglobin 31 25-34 PG Mean Corpuscular Hemoglobin Concent 33 32-36 G/DL Red Cell Distribution Width 13.2 10.0-14.5 % Platelet Count 223 130-400 10^3/uL Mean Platelet Volume 10.1 7.4-10.4 FL Immature Granulocyte % (Auto) 0 % Neutrophils (%) (Auto) 85 H 42-75 % Lymphocytes (%) (Auto) 7 L 12-44 % Monocytes (%) (Auto) 7 0-12 % Eosinophils (%) (Auto) 0 0-10 % Basophils (%) (Auto) 0 0-10 % Neutrophils # (Auto) 14.8 H 1.8-7.8 X 10^3 Lymphocytes # (Auto) 1.3 1.0-4.0 X 10^3 Monocytes # (Auto) 1.3 H 0.0-1.0 X 10^3 Eosinophils # (Auto) 0.0 0.0-0.3 10^3/uL Basophils # (Auto) 0.0 0.0-0.1 10^3/uL Immature Granulocyte # (Auto) 0.1 0.0-0.1 10^3/uL Neutrophils % (Manual) 86 % Lymphocytes % (Manual) 8 % Monocytes % (Manual) 5 % Eosinophils % (Manual) 0 % Basophils % (Manual) 0 % Band Neutrophils 1 % Blood Morphology Comment NORMAL Prothrombin Time 16.8 H 12.2-14.7 SEC INR Comment 1.3 0.8-1.4 Activated Partial Thromboplast Time 24 24-35 SEC Sodium Level 137 135-145 MMOL/L Potassium Level 4.3 3.6-5.0 MMOL/L Chloride Level 91 L 98-107 MMOL/L Carbon Dioxide Level 24 21-32 MMOL/L Anion Gap 22 H 5-14 MMOL/L Blood Urea Nitrogen 61 H 7-18 MG/DL Creatinine 1.64 H 0.60-1.30 MG/DL Estimat Glomerular Filtration Rate 41 BUN/Creatinine Ratio 37 Glucose Level 146 H 70-105 MG/DL Calcium Level 11.6 H 8.5-10.1 MG/DL Corrected Calcium 12.3 H 8.5-10.1 MG/DL Magnesium Level 1.9 1.6-2.4 MG/DL Total Bilirubin 1.1 H 0.1-1.0 MG/DL Aspartate Amino Transf (AST/SGOT) 19 5-34 U/L Alanine Aminotransferase (ALT/SGPT) 16 0-55 U/L Alkaline Phosphatase 140 H 40-136 U/L Troponin I < 0.30 <0.30 NG/ML Pro-B-Type Natriuretic Peptide 4319.0 H <75.0 PG/ML Total Protein 6.2 L 6.4-8.2 GM/DL Albumin 3.1 L 3.2-4.5 GM/DL Lipase 47 8-78 U/L Lactic Acid Level 7.87 *H 0.50-2.00 MMOL/L My Orders Orders - ROXY MAN DO Cbc With Automated Diff (09/13/20 09:59) Comprehensive Metabolic Panel (09/13/20 09:59) Lipase (09/13/20 09:59) Ekg Tracing (09/13/20:59) Troponin I Fs (09/13/20:59) Chest 1 View Ap/Pa Only (09/13/20 09:59) Protime With Inr (09/13/20 10:00) Partial Thromboplastin Time (09/13/20 10:00) Pantoprazole Injection (Protonix Injecti (09/13/20 10:00) Ns (Ivpb) (Sodium C... W/Pantoprazole In (09/13/20 10:00) Magnesium (09/13/20 10:01) Probnp Fs (09/13/20 10:01) Ns Iv 1000 Ml (Sodium Chloride 0.9%) (09/13/20 10:15) Occult Blood,Gastric Fluid (09/13/20 10:02) Manual Differential (09/13/20 09:56) Ct Abdomen/Pelvis Wo (09/13/20 10:43) Diltiazem Drip Pre-Mix (Cardizem Drip Pr (09/13/20 12:15) Ceftriaxone For Iv Use (Rocephin For I (09/13/20 14:00) Lactic Acid Analyzer (09/13/20 13:48) Ns Iv 1000 Ml (Sodium Chloride 0.9%) (09/13/20 15:00) Ns Iv 1000 Ml (Sodium Chloride 0.9%) (09/13/20 15:00) Levofloxacin 750 Mg/150 Ml Iv (Levaquin (09/14/20 09:00) Adenosine Injection (Adenocard Injection (09/13/20 15:00) Medications Given in ED Current Medications Medications Dose Ordered Sig/Luli Route Start Time Stop Time Status Last Admin Dose Admin Adenosine 12 mg ONCE ONCE IV 09/13/20 15:00 09/13/20 15:01 DC 09/13/20 15:04 12 MG Ceftriaxone Sodium 1000 mg/ Sterile Water 10 ml @ 200 mls/hr ONCE ONCE IV 09/13/20 14:00 09/13/20 14:02 DC 09/13/20 13:56 200 MLS/HR Pantoprazole 40 mg ONCE ONCE IV 09/13/20 10:00 09/13/20 10:01 DC 09/13/20 10:20 40 MG Vital Signs/I&O 09/13/20 10:11 Temp 35.2 Pulse 153 Resp 18 B/P (MAP) 122/74 (90) Pulse Ox 94 O2 Delivery Room Air Blood Pressure Mean: 90 Fecal Occult: Positive Departure Communication (Admissions) Chest x-ray/CT abdomen and pelvis reviewed. Patient with possible possible pulmonary infiltrate with bowel obstruction and upper GI bleed. Patient with persistent SVT likely related to underlying physiologic status. Patient briefly converted to normal sinus and then resume SVT. Attempt to cardiovert with adenosine 12 mg 1 was unsuccessful. Broad-spectrum antibiotics given. Repeat fluid bolus given cautiously given concern for possible congestive heart failure. IV Protonix given for GI bleed. Attempts were made to transfer patient to [facility] were unsuccessful due lack of bed availability. Patient accepted by Dr Benitez at [facility] in [place]. Patient will fly fixed wing due to weather and potential for deterioration on route via ground transportation. Critical care time: 75 minutes Impression Primary Impression: Upper GI bleed Additional Impressions: Small bowel obstruction SVT (supraventricular tachycardia) Disposition: XFER SHT-TRM HOSP Condition: Critical Transfer Transfer Reason: Exceeds level of care Time Spoke to Accepting Phy: 14:30 Method of Transfer: Air Departure-Patient Inst. Referrals: ARMINDA GONZALEZ MD (PCP/Family) Primary Care Physician ROXY MAN DO Sep 13, 2020 10:59
--- NOTE | 2020-09-13 11:38 | Diagnostic Imaging Report ---
PROCEDURE: CT abdomen and pelvis without contrast. TECHNIQUE: Multiple contiguous axial images were obtained through the abdomen and pelvis without the use of intravenous contrast. Auto Exposure Controls were utilized during the CT exam to meet ALARA standards for radiation dose reduction. INDICATION: Abdominal pain suspicion for bowel obstruction. Compared with study 08/30/2020. FINDINGS: There is air and fluid distending the stomach as well as likely refluxing and distending the lower thoracic esophagus with a small hiatal hernia. There is mild distention of the duodenum beyond the ligament of Treitz in the proximal small bowel in the left upper quadrant where there is a transition left of midline just above the level of the umbilicus. No discrete mass at the level of transition found at least partial obstruction is suspected. The mid to distal small bowel as well as colon are nondilated. There is some stool in the rectal vault its volume not pathologic. There is a normal-appearing appendix and scattered noninflamed diverticuli. Gastroduodenal and proximal small bowel dilatation is a new finding from the comparison study. There is mild dependent bibasilar atelectasis with no identifiable basilar pulmonary mass. There are at least 2 adjacent low density but likely solid lesions in the right hepatic lobe posterolaterally the larger of which is about 2.5 cm. Mild thickening of the bilateral adrenal glands greater left unchanged. The pancreas itself appeared nonfocal and nonacute. There is no bile duct dilatation. There is a probable incidental splenule in the left upper quadrant. Ileo-inguinal lymph node chains and pelvic sidewalls unremarkable. Indeterminate subcutaneous nodules are found below the umbilicus in the left lower quadrant deep subcutaneous fat measuring 1.4 cm as well as in the deep subcutaneous fat in the left flank measuring 2 cm at the level of the L2 vertebral body. At the L2-L3 disc space level, there is intramuscular mass in the right posterior paraspinal tissues measuring 2.6 x 2.1 cm as well as a small intramuscular mass in the superior aspect of the right gluteal musculature. Multifocal lower thoracic and lumbar vertebral bony metastatic lesions are unchanged where seen on the comparison CT with pelvic imaging reveals no lytic lesions in the anterior and posterior right acetabulum and at L5 vertebral lesion extending through the posterior cortex impinging upon the right lateral recess. There is no free air. There is no pneumatosis. The atherosclerotic aorta nonaneurysmal. The urinary bladder nonfocal. IMPRESSION: 1. Suspicion for new proximal small bowel obstruction just beyond the ligament of Treitz where there is focal transition zone but no identifiable focal mass effect. 2. 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 3. Suspected primary is not revealed at the study. Dictated by: Dictated on workstation # [id number]
[2020-09-13] MEDS ORDERED: dilTIAZem DRIP PRE-MIX 125 ML IV SCH (12:15)
[2020-09-13] MEDS ORDERED: cefTRIAXone FOR IV USE 1,000 MG in WATER (STERILE) FOR INJECTION 10 ML IV ONE (14:00)
[2020-09-13] MEDS ORDERED: ADENOSINE 6 MG/2 ML (ADENOCARD) VIAL IV ONE (15:00)
--- NOTE | 2020-09-13 15:15 | NUR ---
[facility] HAS ACCEPTED THE PT AND IS COMING OUT OF READING. ETA 1700
--- NOTE | 2020-09-13 15:22 | NUR ---
1300: [facility] and [facility] declined helicopter transfers at this time d/t weather. [facility] fixed wing transportation might be available in 2-3 hours. 1336: [facility] declined d/t weather.
[2020-09-13 16:54] VITALS: BP 109/49
[2020-09-14] MEDS ORDERED: LEVOFLOXACIN 750 MG/150 ML IV 150 ML IV SCH (09:00)
== END 2020-09-13 16:56 | disposition short-term general hospital (02) ==
LOC: EDUNIT# 09:41 → ER FS 09:42
DX: K92.2 Gastrointestinal hemorrhage, unspecified (principal); I47.1 Supraventricular tachycardia; K56.609 Unspecified intestinal obstruction, unspecified as to partial versus complete obstruction; Z86.718 Personal history of other venous thrombosis and embolism; Z86.711 Personal history of pulmonary embolism; Z79.01 Long term (current) use of anticoagulants
CPT/HCPCS: 36415; 71045; 74176; 80053; 82274; 83605; 83690; 83735; 83880; 84484; 85007; 85027; 85610; 85730; 93005; 99291